=== PATIENT | male | born 1990 | race Caucasian/White ===

== ENCOUNTER 2017-08-27 09:02 | Emergency (ER) | payer OTHER ==
[~2017-08-27] VITALS: Ht 182.8 cm; Wt 122.5 kg
[~2017-08-27 09:02] MED LIST: 'PARAFON FORTE500 M1 PO; ATIVAN1 MG PO; CYCLOBENZAPRINE5 M3 PO; FLEXERIL5 MG PO; MACROBID100 M1 PO; MOTRIN800 MG PO; Motrin,Rufen800 MG PO; NAPROSYN500 MG PO; ULTRAM50 MG PO; ZOFRAN ODT4 MG SL
[2017-08-27 09:36] LABS: BILIRUBIN NEGATIVE (NEGATIVE); BLOOD 1+ (NEGATIVE); CLARITY CLEAR (CLEAR); COLOR YELLOW (YELLOW); GLUCOSE NEGATIVE (NEGATIVE); KETONE NEGATIVE (NEGATIVE); LEUKO ESTERASE NEGATIVE (NEGATIVE); NITRITE NEGATIVE (NEGATIVE); SPECIFIC GRAVITY 1.025 (1.005-1.030); UROBILINOGEN 0.2 E.U./dl (0.2-1.0)
[2017-08-27 09:38] LABS: BASO % 0.3 % (0.0-1.0); EOS # 0.1 10*3/uL (0.0-0.4); EOS % 1.5 % (1.0-4.0); HEMATOCRIT 42.1 % (42.0-52.0); HEMOGLOBIN 14.7 g/dl (14.0-18.0); LYMPH # 1.9 10*3/uL (1.3-4.4); LYMPH % 30.3 % (27.0-41.0); MEAN CELL VOLUME 87.3 fl (80.0-94.0); MEAN CORPUSCULAR HGB 30.5 pg (27.0-31.0); MEAN CORPUSCULAR HGB CONC 34.9 g/dl (33.0-37.0); MEAN PLATELET VOLUME 9.6 fl (9.6-12.3); MONO # 0.5 10*3/uL (0.1-1.0); MONO % 7.3 % (3.0-9.0); NEUT # 3.7 10*3/uL (2.3-7.9); NEUT % 60.3 % (47.0-73.0); PLATELET COUNT AUTOMATED 216 10*3/uL (130-400); RED BLOOD COUNT 4.82 10*6/uL (4.50-5.90); RED CELL DISTRI WIDTH 12.1 % (0-14.5); WHITE BLOOD COUNT 6.2 10*3/uL (4.8-10.8)
[2017-08-27 09:46] LABS: BACTERIA TRACE; EPITHELIAL CELLS 0-2
[2017-08-27 09:52] LABS: ALBUMIN 3.6 gm/dl (3.1-4.5); ALKALINE PHOSPHATASE 77 U/L (45-117); BUN 15 mg/dl (7-24); CHLORIDE 107 mmol/L (98-107); LIPASE 117 U/L (73-393); POTASSIUM 3.9 mmol/L (3.5-5.1); SGOT/AST 15 IU/L (3-35); SGPT/ALT 28 U/L (12-78); SODIUM 141 mmol/L (136-145); TOTAL PROTEIN 7.1 gm/dL (6.4-8.2)
== END 2017-08-27 10:56 | disposition home or self-care (01) ==
LOC: ED 09:02
PROVIDERS: Emergency Medicine
DX: K59.00 Constipation, unspecified (principal); F32.9 Major depressive disorder, single episode, unspecified; F41.9 Anxiety disorder, unspecified; Z79.899 Other long term (current) drug therapy

== ENCOUNTER 2018-05-01 15:06 | Emergency (ER) | payer SELFPAY ==
[~2018-05-01] VITALS: Ht 185.4 cm; Wt 127.0 kg
[2018-05-01 15:37] LABS: BASO % 0.4 % (0.0-1.0); EOS # 0.1 10*3/uL (0.0-0.4); EOS % 1.9 % (1.0-4.0); HEMATOCRIT 43.3 % (42.0-52.0); HEMOGLOBIN 15.3 g/dl (14.0-18.0); LYMPH # 2.5 10*3/uL (1.3-4.4); LYMPH % 33.7 % (27.0-41.0); MEAN CELL VOLUME 86.6 fl (80.0-94.0); MEAN CORPUSCULAR HGB 30.6 pg (27.0-31.0); MEAN CORPUSCULAR HGB CONC 35.3 g/dl (33.0-37.0); MEAN PLATELET VOLUME 9.5 fl (9.6-12.3); MONO # 0.5 10*3/uL (0.1-1.0); MONO % 6.3 % (3.0-9.0); NEUT # 4.2 10*3/uL (2.3-7.9); NEUT % 57.4 % (47.0-73.0); PLATELET COUNT AUTOMATED 227 10*3/uL (130-400); RED CELL DISTRI WIDTH 11.9 % (0-14.5); WHITE BLOOD COUNT 7.3 10*3/uL (4.8-10.8)
[2018-05-01 15:39] LABS: BILIRUBIN NEGATIVE (NEGATIVE); BLOOD TRACE-INTACT (NEGATIVE); CLARITY CLEAR (CLEAR); COLOR YELLOW (YELLOW); GLUCOSE NEGATIVE (NEGATIVE); KETONE NEGATIVE (NEGATIVE); LEUKO ESTERASE NEGATIVE (NEGATIVE); NITRITE NEGATIVE (NEGATIVE); SPECIFIC GRAVITY <= 1.005 (1.005-1.030); UROBILINOGEN 0.2 E.U./dl (0.2-1.0)
[2018-05-01 15:43] LABS: EPITHELIAL CELLS 0-2; RBC 0-2 rbc/hpf (0-2); WBC 0-2 wbc/hpf (0-5)
[2018-05-01 15:44] LABS: BACTERIA 1+
[2018-05-01 15:52] LABS: ALBUMIN 3.8 gm/dl (3.1-4.5); ALKALINE PHOSPHATASE 77 U/L (45-117); BUN 12 mg/dl (7-24); CHLORIDE 103 mmol/L (98-107); CREATININE 1.03 mg/dL (0.70-1.30); LIPASE 120 U/L (73-393); SGOT/AST 23 IU/L (3-35); SGPT/ALT 38 U/L (12-78); SODIUM 138 mmol/L (136-145); TOTAL PROTEIN 7.5 gm/dL (6.4-8.2)
[2018-05-01] MEDS ORDERED: COLACE100 MG PO (16:24)
== END 2018-05-01 17:14 | disposition home or self-care (01) ==
LOC: ED 15:06
PROVIDERS: Physician Assistant
DX: K59.00 Constipation, unspecified (principal); R30.0 Dysuria; R10.30 Lower abdominal pain, unspecified

== ENCOUNTER 2018-06-14 23:18 | Emergency (ER) | payer SELFPAY ==
[~2018-06-14] VITALS: Wt 117.9 kg
[~2018-06-14 23:18] MED LIST changes: +COLACE100 MG PO
[2018-06-15 00:12] LABS: BASO % 0.5 % (0.0-1.0); EOS % 0.2 % (1.0-4.0); HEMATOCRIT 41.6 % (42.0-52.0); HEMOGLOBIN 14.7 g/dl (14.0-18.0); LYMPH # 0.9 10*3/uL (1.3-4.4); LYMPH % 15.1 % (27.0-41.0); MEAN CELL VOLUME 86.3 fl (80.0-94.0); MEAN CORPUSCULAR HGB 30.5 pg (27.0-31.0); MEAN CORPUSCULAR HGB CONC 35.3 g/dl (33.0-37.0); MEAN PLATELET VOLUME 9.5 fl (9.6-12.3); MONO # 0.7 10*3/uL (0.1-1.0); MONO % 10.7 % (3.0-9.0); NEUT # 4.5 10*3/uL (2.3-7.9); NEUT % 73.2 % (47.0-73.0); PLATELET COUNT AUTOMATED 202 10*3/uL (130-400); RED BLOOD COUNT 4.82 10*6/uL (4.50-5.90); WHITE BLOOD COUNT 6.1 10*3/uL (4.8-10.8)
[2018-06-15 00:31] LABS: ALBUMIN 3.8 gm/dl (3.1-4.5); ALKALINE PHOSPHATASE 79 U/L (45-117); BUN 14 mg/dl (7-24); CHLORIDE 105 mmol/L (98-107); CREATININE 1.29 mg/dL (0.70-1.30); POTASSIUM 3.5 mmol/L (3.5-5.1); SGOT/AST 18 IU/L (3-35); SGPT/ALT 31 U/L (12-78); SODIUM 139 mmol/L (136-145); TOTAL PROTEIN 7.3 gm/dL (6.4-8.2)
[2018-06-15 00:32] LABS: TROPONIN I < 0.015 ng/ml (<0.045)
== END 2018-06-15 02:34 | disposition home or self-care (01) ==
LOC: ED 23:18
PROVIDERS: Nurse Practitioner Family
DX: A08.4 Viral intestinal infection, unspecified (principal); Z79.899 Other long term (current) drug therapy

== ENCOUNTER 2021-06-05 14:15 | Emergency (ER) | payer SELFPAY ==
[~2021-06-05] VITALS: Wt 131.5 kg
[2021-06-05 15:01] LABS: BILIRUBIN Negative (Negative); BLOOD Trace-Lysed (Negative); CLARITY Clear (Clear); COLOR Yellow (Yellow); GLUCOSE Negative (Negative); KETONE Negative (Negative); LEUKO ESTERASE Negative (Negative); NITRITE Negative (Negative); PH 6.5 (4.5-8.0); SPECIFIC GRAVITY <= 1.005 (1.001-1.030); UROBILINOGEN 0.2 E.U./dl (0.0-1.0)
[2021-06-05 15:10] LABS: BACTERIA TRACE
[2021-06-05] MEDS ORDERED: CIPRO500 MG PO ×2 (15:17→15:36)
== END 2021-06-05 15:24 | disposition home or self-care (01) ==
LOC: ED 14:15
PROVIDERS: Physician Assistant
DX: N41.9 Inflammatory disease of prostate, unspecified (principal); R30.0 Dysuria; R19.7 Diarrhea, unspecified; Z79.899 Other long term (current) drug therapy

== ENCOUNTER 2022-04-09 20:44 | Emergency (ER) | payer SELFPAY ==
[~2022-04-09] VITALS: Ht 182.8 cm; Wt 131.5 kg
[~2022-04-09 20:44] MED LIST changes: +CIPRO500 MG PO
[2022-04-09 23:07] LABS: BUN 13 mg/dl (7-24); CHLORIDE 112 mmol/L (98-107); CREATININE 1.07 mg/dL (0.70-1.30); POTASSIUM 3.6 mmol/L (3.5-5.1); SODIUM 142 mmol/L (136-145); TOTAL PROTEIN 6.8 gm/dL (6.4-8.2)
[2022-04-09 23:08] LABS: ALKALINE PHOSPHATASE 97 U/L (45-117); SGOT/AST 20 IU/L (3-35); SGPT/ALT 30 U/L (12-78)
[2022-04-09 23:11] LABS: BASO % 0.5 % (0.0-1.0); EOS # 0.2 10*3/uL (0.0-0.4); EOS % 2.9 % (1.0-4.0); HEMATOCRIT 41.4 % (42.0-52.0); LYMPH # 2.8 10*3/uL (1.3-4.4); LYMPH % 37.8 % (27.0-41.0); MEAN CELL VOLUME 88.1 fl (80.0-94.0); MEAN CORPUSCULAR HGB 31.1 pg (27.0-31.0); MEAN CORPUSCULAR HGB CONC 35.3 g/dl (33.0-37.0); MEAN PLATELET VOLUME 10.2 fl (9.6-12.3); MONO # 0.4 10*3/uL (0.1-1.0); MONO % 5.6 % (3.0-9.0); NEUT # 3.9 10*3/uL (2.3-7.9); NEUT % 52.7 % (47.0-73.0); PLATELET COUNT AUTOMATED 246 10*3/uL (130-400); RED CELL DISTRI WIDTH 11.8 % (0-14.5); WHITE BLOOD COUNT 7.3 10*3/uL (4.8-10.8)
== END 2022-04-09 23:32 | disposition home or self-care (01) ==
LOC: ED 20:44
PROVIDERS: Physician Assistant
DX: B27.90 Infectious mononucleosis, unspecified without complication (principal); R11.10 Vomiting, unspecified

== ENCOUNTER 2023-07-08 13:57 | Emergency (ER) | payer SELFPAY ==
[~2023-07-08] VITALS: Ht 182.8 cm; Wt 131.5 kg
== END 2023-07-08 15:44 | disposition home or self-care (01) ==
LOC: ED 13:57
DX: S93.401A Sprain of unspecified ligament of right ankle, initial encounter (principal); X50.1XXA Overexertion from prolonged static or awkward postures, initial encounter; Y93.01 Activity, walking, marching and hiking; Y92.89 Other specified places as the place of occurrence of the external cause; Y99.8 Other external cause status

== ENCOUNTER 2023-09-01 08:10 | Emergency (ER) | payer SELFPAY ==
[~2023-09-01] VITALS: Ht 182.8 cm; Wt 131.5 kg
[2023-09-01] MEDS ORDERED: ZOLOFT50 MG PO (08:39)
[2023-09-01] MEDS ORDERED: DOXEPIN HCL10 MG PO (08:39)
[2023-09-01 09:28] LABS: HEMATOCRIT 47.9 % (42.0-52.0); MEAN CELL VOLUME 87.4 fl (80.0-94.0); MEAN CORPUSCULAR HGB 30.7 pg (27.0-31.0); MEAN CORPUSCULAR HGB CONC 35.1 g/dl (33.0-37.0); MEAN PLATELET VOLUME 9.2 fl (9.6-12.3); PLATELET COUNT AUTOMATED 235 10*3/uL (130-400); RED BLOOD COUNT 5.48 10*6/uL (4.50-5.90); RED CELL DISTRI WIDTH 11.8 % (0-14.5); WHITE BLOOD COUNT 13.2 10*3/uL (4.8-10.8)
[2023-09-01 09:29] LABS: MANUAL DIFF REFLEX YES
[2023-09-01 09:39] LABS: ACT PARTIAL THROMBO TIME 25.6 SECONDS (20.0-32.1)
[2023-09-01 09:48] LABS: PLATELET SUFFICIENCY NORMAL (NORMAL); POLYCHROMASIA SLIGHT; TOTAL CELLS COUNTED 100 #CELLS; TOXIC GRANULATION SLIGHT; VACUOLATION OF NEUTROPHILS SLIGHT
[2023-09-01 09:52] LABS: ALKALINE PHOSPHATASE 71 U/L (46-116); BUN 13 mg/dl (9-23); CHLORIDE 108 mmol/L (98-107); LIPASE 31 U/L (12-53); POTASSIUM 4.4 mmol/L (3.4-5.1); SGPT/ALT 19 U/L (5-49); TOTAL PROTEIN 7.7 gm/dL (6.0-8.0)
[2023-09-01 09:54] LABS: ETHYL ALCOHOL < 3.0 mg/dl (<3)
[2023-09-01 10:10] LABS: BILIRUBIN Negative (Negative); BLOOD Trace-Intact (Negative); CLARITY Clear (Clear); COLOR Yellow (Yellow); GLUCOSE Negative (Negative); KETONE Negative (Negative); LEUKO ESTERASE Negative (Negative); NITRITE Negative (Negative); SPECIFIC GRAVITY >= 1.030 (1.001-1.030); UROBILINOGEN 0.2 E.U./dl (0.0-1.0)
[2023-09-01 10:17] LABS: URINE AMPHETAMINES Negative (1000ng/ml); URINE BARBITURATES Negative (200ng/ml); URINE BENZODIAZEPINES Negative (200ng/ml); URINE CANNABINOIDS (THC) Negative (50ng/ml); URINE COCAINE Negative (300ng/ml); URINE METHADONE Negative (300ng/ml); URINE OPIATES Negative (300ng/ml); URINE PHENCYCLIDINE Negative (25ng/ml)
[2023-09-01 10:35] LABS: BACTERIA 1+; MUCOUS 2+
[2023-09-01] MEDS ORDERED: ONDANSETRON4 MG SL (11:52)
== END 2023-09-01 12:08 | disposition home or self-care (01) ==
LOC: ED 08:10
PROVIDERS: Family Medicine
DX: R55 Syncope and collapse (principal); F41.9 Anxiety disorder, unspecified; K52.9 Noninfective gastroenteritis and colitis, unspecified; R11.2 Nausea with vomiting, unspecified

== ENCOUNTER 2023-12-27 17:28 | Emergency (ER) | payer OTHER ==
[~2023-12-27] VITALS: Ht 185.4 cm; Wt 131.5 kg
[~2023-12-27 17:28] MED LIST changes: +DOXEPIN HCL10 MG PO; +ONDANSETRON4 MG SL; +ZOLOFT50 MG PO
[2023-12-27] MEDS ORDERED: IBUPROFEN 800 MG TAB PO ONE (17:50)
== END 2023-12-27 21:56 | disposition home or self-care (01) ==
LOC: ED 17:28
DX: S16.1XXA Strain of muscle, fascia and tendon at neck level, initial encounter (principal); S70.02XA Contusion of left hip, initial encounter; F41.9 Anxiety disorder, unspecified; W10.8XXA Fall (on) (from) other stairs and steps, initial encounter; Y93.89 Activity, other specified; Y92.89 Other specified places as the place of occurrence of the external cause; Y99.0 Civilian activity done for income or pay